=== PATIENT | female | born 1965 | race Caucasian/White ===

== ENCOUNTER 2018-12-13 09:50 | Emergency (ER) | payer OTHER ==
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
[2018-12-13 11:06] VITALS: BP 154/86
== END 2018-12-13 11:03 | disposition home or self-care (01) ==
LOC: ED 09:50
DX: S09.90XA Unspecified injury of head, initial encounter (principal); V43.52XA Car driver injured in collision with other type car in traffic accident, initial encounter; Y92.410 Unspecified street and highway as the place of occurrence of the external cause
CPT/HCPCS: 99282